=== PATIENT | female | born 1990 | race Caucasian/White ===

== ENCOUNTER 2016-12-19 12:16 | Emergency (ER) | payer BC ==
[~2016-12-19] VITALS: Wt 68.0 kg
[2016-12-19] MEDS ORDERED: ONDANSETRON (ODT) 4 MG TAB ODT STA (13:16)
[2016-12-19] MEDS ORDERED: ACETAMINOPHEN 325 MG TAB PO ONE (13:30)
[2016-12-19 14:00] LABS: ADD UMIC YES; URINE BILIRUBIN (Dip) NEGATIVE (NEGATIVE); URINE BLOOD (Dip) TRACE (NEGATIVE); URINE COLOR AMBER (YELLOW); URINE KETONES (Dip) NEGATIVE (NEGATIVE); URINE LEUKOCYTE ESTERASE (Dip) NEGATIVE (NEGATIVE); URINE NITRITE (Dip) POSITIVE (NEGATIVE); URINE TOTAL PROTEIN (Dip) TRACE (NEGATIVE); URINE UROBILINOGEN (Dip) 2.0 E.U./dL (0.1-1.0)
[2016-12-19] MEDS ORDERED: CEPH-443 PO (14:37)
[2016-12-19] MEDS ORDERED: IBUP-1542 PO (14:38)
[2016-12-19 15:01] LABS: URINE RBCS 0-2 /HPF (0)
--- NOTE | 2016-12-19 15:18 | RADRPT ---
PROCEDURE: US Pelvis CLINICAL INDICATION: pain TECHNIQUE: Multiple sonographic images of the pelvis were obtained utilizing a transabdominal tech nique. The images were reviewed on a PACS workstation. COMPARISON: None. LMP: 11/30/2016 FINDINGS: The uterus measures 7.2 x 3.4 x 4.9 cm. The endometrial echo complex measures 5-6 mm in thickness. No discrete lesion is seen. The right ovary measures 3.2 x 2.2 x 2.4 cm. The left ovary measures 2.4 x 1.8 x 1.8 cm. There is no rmal vascular flow in both ovaries. No significant ovarian lesions are seen. No significant pelvic free fluid is identified. IMPRESSION: Unremarkable pelvic ultrasound, as above. RPTAT: EE Physician Makayla Date Time Electronically viewed and signed by Physician Makayla on 12/19/2016 15:18 /
--- NOTE | 2016-12-19 15:27 | ERD ---
ER Documentation Chief Complaint Date/Time DATE: 12/19/16 TIME: 15:26 Chief Complaint AP WITH FEVER X 1 WEEK ROS All systems reviewed and are negative except as per history of present illness. Medications Home Meds Active Scripts Ibuprofen* (Motrin*) 600 Mg Tab, 600 MG PO Q6H Y for PAIN AND OR ELEVATED TEMP, #30 TAB Prov:CORTNEY HERRERA PA-C 12/19/16 Cephalexin* (Keflex*) 500 Mg Capsule, 500 MG PO QID for 5 Days, CAP Prov:CORTNEY HERRERA PA-C 12/19/16 Allergies Allergies: Coded Allergies: No Known Allergy (Unverified , 12/19/16) PMhx/Soc Medical and Surgical Hx: pt denies Medical Hx, pt denies Surgical Hx Hx Alcohol Use: Yes Hx Substance Use: Yes Hx Tobacco Use: Yes Smoking Status: Former smoker Physical Exam Vitals Vital Signs Date Time Temp Pulse Resp B/P Pulse Ox O2 Delivery O2 Flow Rate FiO2 12/19/16 12:23 98.0 90 16 116/62 99 Physical Exam Const: [] Head: Atraumatic Eyes: Normal Conjunctiva ENT: Normal External Ears, Nose and Mouth. Neck: Full range of motion..~ No meningismus. Resp: Clear to auscultation bilaterally Cardio: Regular rate and rhythm, no murmurs Abd: Soft, non tender, non distended. Normal bowel sounds Skin: No petechiae or rashes Back: No midline or flank tenderness Ext: No cyanosis, or edema Neur: Awake and alert Psych: Normal Mood and Affect Results 24 hrs Laboratory Tests Test 12/19/16 13:25 Urine Bilirubin NEGATIVE Urine Clarity CLEAR Urine Color SPIKE Urine Epithelial Cells RARE Urine Glucose 0.1%% Urine Hemoglobin TRACE Urine Ketones NEGATIVE Urine Leukocyte Esterase NEGATIVE Urine Microscopic RBC 0-2/HPF Urine Microscopic WBC NONE SEEN/HPF Urine Nitrite POSITIVE Urine Specific [place] 1.010 Urine Starch RARE Urine Total Protein TRACE Urine Urobilinogen 2.0 E.U./dL Urine pH 5.0 Current Medications Medications (Trade) Dose Ordered Sig/Daly Route PRN Reason Start Time Stop Time Status Last Admin Dose Admin Ondansetron HCl (Zofran Odt) 4 mg ONCE STAT ODT 12/19/16 13:16 12/19/16 13:19 DC 1/27/17 13:36 Acetaminophen (Tylenol Tab) 650 mg ONCE ONCE PO 12/19/16 13:30 12/19/16 13:31 DC 12/19/16 13:36 Procedures/MDM PROCEDURE: US Pelvis CLINICAL INDICATION: pain TECHNIQUE: Multiple sonographic images of the pelvis were obtained utilizing a transabdominal technique. The images were reviewed on a PACS workstation. COMPARISON: None. LMP: 11/30/2016 FINDINGS: The uterus measures 7.2 x 3.4 x 4.9 cm. The endometrial echo complex measures 5 -6 mm in thickness. No discrete lesion is seen. The right ovary measures 3.2 x 2.2 x 2.4 cm. The left ovary measures 2.4 x 1.8 x 1.8 cm. There is normal vascular flow in both ovaries. No significant ovarian lesions are seen. No significant pelvic free fluid is identified. IMPRESSION: Unremarkable pelvic ultrasound, as above. RPTAT: EE Physician Makayla Date Time Electronically viewed and signed by Gary Henning Physician on 12/19/2016 15:18 RA/ CC: CORTNEY HERRERA PA-C, LINDSEY M. PA-C Dec 19, 2016 15:27
== END 2016-12-19 15:55 | disposition home or self-care (01) ==
LOC: FTE 12:16
DX: R10.9 Unspecified abdominal pain (principal); R50.9 Fever, unspecified; R10.2 Pelvic and perineal pain; R11.2 Nausea with vomiting, unspecified; Z87.891 Personal history of nicotine dependence
CPT/HCPCS: 76830; 76856; 81001; Z7502; Z7610; 81003

== ENCOUNTER 2017-01-16 10:13 | Emergency (ER) | payer BC ==
[~2017-01-16] VITALS: Ht 162.6 cm; Wt 52.0 kg
[~2017-01-16 10:13] MED LIST: CEPH-443 PO; IBUP-1542 PO
[2017-01-16 10:15] VITALS: Ht 162.6 cm; Wt 52.0 kg
[2017-01-16 10:41] LABS: URINE BLOOD (Dip) POC Trace-intact (NEGATIVE)
[2017-01-16] MEDS ORDERED: ACETAMINOPHEN 325 MG TAB PO ONE (11:00)
--- NOTE | 2017-01-16 12:10 | RADRPT ---
PROCEDURE: US Pelvis. CLINICAL INDICATION: pelvic pain TECHNIQUE: Multiple sonographic images of the pelvis were obtained utilizing a transabdominal and endovaginal technique. The images were reviewed on a PACS workstation. COMPARISON: 12/19/2016 FINDINGS: The uterus is normal in size with a normal appearance of the myometrium. The uterus measures 8.8 x 3.8 x 4.5 cm. The endometrial stripe is homogeneous in appearance and has the thickness of 11 mm. The ovaries are normal in size and echogenicity. Normal Doppler flow is identified in both ovaries. The right ovary measures 3.3 x 1.5 x 1.9 cm. The left ovary measures 3.4 x 2.4 x 3.4 cm. There is a 2.7 cm simple cyst in the left ovary. There is a small amount of free fluid in the pelvis. RPTAT: AA IMPRESSION: Left ovarian simple cyst measuring 2.7 cm. Small amount of free fluid in the pelvis. .Jewel Silver MD, MD Date Time Electronically viewed and signed by .Jewel Silver MD, MD on 01/16/2017 12:10 .S/
[2017-01-16] MEDS ORDERED: IBUP400T22 PO (12:17)
--- NOTE | 2017-01-16 12:21 | ERD ---
ER Documentation Chief Complaint Date/Time DATE: 01/16/17 TIME: 12:20 Chief Complaint left lower abd pain since thursday and frequency of urination x 1 day HPI This 26-year-old female presents with a three-day history of pain in her left pelvic area. She possibly has frequency of urination without dysuria. She denies any fevers, vomiting. She did have diarrhea for the last 1-2 days well but she believes it was from some bad food as her significant other also has diarrhea and is improving. Last menstrual period was approximately 2 weeks ago and she denies ROS All systems reviewed and are negative except as per history of present illness. Medications Home Meds Active Scripts Ibuprofen* (Motrin*) 400 Mg Tab, 400 MG PO Q6, #20 TAB Prov:TANK MAGALLANES MD 01/16/17 Ibuprofen* (Motrin*) 600 Mg Tab, 600 MG PO Q6H Y for PAIN AND OR ELEVATED TEMP, #30 TAB Prov:CORTNEY HERRERA PA-C 12/19/16 Cephalexin* (Keflex*) 500 Mg Capsule, 500 MG PO QID for 5 Days, CAP Prov:CORTNEY HERRERA PA-C 12/19/16 Allergies Allergies: Coded Allergies: No Known Allergy (Unverified , 12/19/16) PMhx/Soc Medical and Surgical Hx: pt denies Medical Hx, pt denies Surgical Hx Hx Alcohol Use: Yes Hx Substance Use: Yes Hx Tobacco Use: Yes Smoking Status: Unknown if ever smoked Physical Exam Vitals Vital Signs Date Time Temp Pulse Resp B/P Pulse Ox O2 Delivery O2 Flow Rate FiO2 01/16/17 10:15 98.2 90 18 108/52 100 Physical Exam Const: [] Alert, [id number] per Head: Atraumatic Eyes: Normal Conjunctiva ENT: Normal External Ears, Nose and Mouth. Neck: Full range of motion..~ No meningismus. Resp: Clear to auscultation bilaterally Cardio: Regular rate and rhythm, no murmurs Abd: Soft, minimal tenderness in the left lower quadrant without rebound. No tenderness at McBurney's point no Benitez sign per, non distended. Normal bowel sounds Skin: No petechiae or rashes Back: No midline or flank tenderness Ext: No cyanosis, or edema Neur: Awake and alert Psych: Normal Mood and Affect Results 24 hrs Laboratory Tests Test 01/16/17 10:44 Bedside Urine Blood Trace-intact Bedside Urine Glucose (UA) Negative Bedside Urine Ketones (LAB) Negative Bedside Urine Leukocyte Esterase (L Negative Bedside Urine Nitrite (LAB) Negative Bedside Urine Protein (LAB) Trace Bedside Urine pH (LAB) 7.0 Current Medications Medications (Trade) Dose Ordered Sig/Daly Route PRN Reason Start Time Stop Time Status Last Admin Dose Admin Acetaminophen (Tylenol Tab) 650 mg ONCE ONCE PO 01/16/17 11:00 01/16/17 11:01 DC 01/16/17 10:39 Procedures/MDM HCG is negative. Urine is negative for leukocytes, nitrites and blood. Urine was sent for gonorrhea chlamydia. Pelvic ultrasound shows a 2.7 cm left simple ovarian cyst. There is no evidence of intrauterine or extrauterine additional acute findings. Patient was given ibuprofen for pain will be treated with ibuprofen and further observation at home. There is no evidence to suggest torsion, tubo-ovarian abscess, UTI, acute abdomen patient was advised to recheck for new or worsening symptoms Departure Diagnosis: Primary Impression: Ovarian cyst Laterality: left Qualified Code: N83.202 - Cyst of left ovary Condition: Stable Patient Instructions: Ovarian Cyst Additional Instructions: Ultrasound shows cyst in area of pain which is likely cause of pain. Pain from ovarian cyst usually last up to a week. Recheck for fevers, vomiting, new or worsening symptoms or primary care doctor. TANK MAGALLANES MD Jan 16, 2017 12:21
== END 2017-01-16 12:35 | disposition home or self-care (01) ==
LOC: FTE 10:13
DX: N83.202 Unspecified ovarian cyst, left side (principal)
CPT/HCPCS: 76830; 76856; 81003; 87591; Z7502; Z7610